=== PATIENT | male | born 1975 ===

== ENCOUNTER 2021-11-08 15:43 | Outpatient (CLI) | payer OTHER | END 2021-11-08 15:55 | disposition home or self-care (01) | LOC: RAD 15:43 | PROVIDERS: ATTEND Orthopaedic Surgery | DX: M25.561 Pain in right knee (principal) ==

== ENCOUNTER 2021-11-09 10:21 | Outpatient (CLI) | payer OTHER | END 2021-11-09 16:16 | disposition home or self-care (01) | LOC: LAB 10:21 | PROVIDERS: ATTEND Orthopaedic Surgery | DX: D64.9 Anemia, unspecified (principal); M06.4 Inflammatory polyarthropathy; M10.9 Gout, unspecified ==

== ENCOUNTER 2021-11-15 10:25 | Outpatient (CLI) | payer OTHER | END 2021-11-15 10:46 | disposition home or self-care (01) | LOC: LAB 10:25 | PROVIDERS: ATTEND Orthopaedic Surgery | DX: D64.9 Anemia, unspecified (principal); M06.4 Inflammatory polyarthropathy ==

== ENCOUNTER 2021-11-29 10:54 | Outpatient (CLI) | payer OTHER | END 2021-11-29 11:00 | disposition home or self-care (01) | LOC: LAB 10:54 | PROVIDERS: ATTEND Orthopaedic Surgery | DX: D64.9 Anemia, unspecified (principal); M06.4 Inflammatory polyarthropathy ==